=== PATIENT | male | born 1945 | race Asian ===

== ENCOUNTER 2016-05-19 21:30 | Outpatient (CLI) | payer MEDICARE | END 2016-05-19 21:31 | disposition home or self-care (01) | DX: G47.33 Obstructive sleep apnea (adult) (pediatric) (principal); G47.61 Periodic limb movement disorder ==

== ENCOUNTER 2016-06-13 09:04 | Outpatient (CLI) | payer MEDICARE | END 2016-06-13 09:05 | disposition home or self-care (01) | DX: G47.33 Obstructive sleep apnea (adult) (pediatric) (principal); G47.61 Periodic limb movement disorder | CPT/HCPCS: 99214; G0463 ==

== ENCOUNTER 2017-01-21 06:11 | Day surgery (SDC) | payer MEDICARE ==
[2017-01-21] MEDS ORDERED: LACTATED RINGERS 1,000 ML IV ONE (07:03)
[2017-01-21] MEDS ORDERED: fentaNYL 100 MCG/2 ML VIAL IVP ONE (07:30)
[2017-01-21] MEDS ORDERED: MIDAZOLAM 2 MG/2 ML VIAL IVP ONE (07:30)
[2017-01-21 08:45] VITALS: BP 121/64
[2017-01-21] MEDS ORDERED: DEXTROSE 5% 1,000 ML IV ONE (08:52)
== END 2017-01-21 06:12 | disposition home or self-care (01) ==
LOC: SDS 06:11
PROVIDERS: ATTEND Surgery
PROC: 0DBP8ZX Excision of Rectum, Via Natural or Artificial Opening Endoscopic, Diagnostic (ICD-10-PCS; principal; 2017-01-21 07:30)
DX: Z12.11 Encounter for screening for malignant neoplasm of colon (principal); D12.8 Benign neoplasm of rectum; K57.30 Diverticulosis of large intestine without perforation or abscess without bleeding; K64.8 Other hemorrhoids; I10 Essential (primary) hypertension; E11.9 Type 2 diabetes mellitus without complications; R06.81 Apnea, not elsewhere classified; Z79.82 Long term (current) use of aspirin; Z79.4 Long term (current) use of insulin
CPT/HCPCS: 45380; J7120

== ENCOUNTER 2017-07-18 12:32 | Outpatient (CLI) | payer MEDICARE ==
--- NOTE | 2017-07-19 15:31 | XRAY Report ---
RIGHT SHOULDER: 07/18/2017 COMPARISON: No comparison. INDICATION: Shoulder pain. TECHNIQUE: Three views. FINDINGS Normal alignment. No evidence of acute fracture. There are moderate degenerative changes of the acromioclavicular joint. IMPRESSION: MODERATE AC JOINT ARTHROSIS. TD: 07/19/2017 09:30 MTDD
== END 2017-07-18 12:33 | disposition home or self-care (01) ==
LOC: DI 12:32
PROVIDERS: ATTEND Family Medicine
DX: M19.011 Primary osteoarthritis, right shoulder (principal)

== ENCOUNTER 2018-01-24 14:31 | Emergency (ER) | payer MEDICARE ==
[2018-01-24 14:36] VITALS: BP 176/92
--- NOTE | 2018-01-24 14:59 | ED Physician Documentation ---
PD HPI UPPER EXT INJURY - Stated complaint Stated Complaint: R THUMB INJ - Chief complaint Chief Complaint: Laceration - History obtained from History obtained from: Patient - History of Present Illness Location: Right (He cut the tip off his right thumb at 830 this morning with a mandolin slicer at home. He is up-to-date on tetanus.) Review of Systems Constitutional: reports: Reviewed and negative Throat: reports: Reviewed and negative Cardiac: reports: Reviewed and negative PD PAST MEDICAL HISTORY - Past Medical History Past Medical History: Yes Cardiovascular: Hypertension Respiratory: Sleep apnea, CPAP use Endocrine/Autoimmune: Type 2 diabetes GI: Colon polyps : None HEENT: Chronic vision loss, Chronic hearing loss Psych: None Musculoskeletal: Osteoarthritis, Gout Derm: None - Past Surgical History Past Surgical History: No General: Colonoscopy HEENT: Other - Present Medications Home Medications: Ambulatory Orders Medication Instructions Recorded Confirmed Aspirin 81 mg PO 01/21/17 Atenolol 50 mg PO 01/21/17 Calcium Carbonate/Vitamin D3 1 each PO 01/21/17 [Calcium 500-Vit D3 600 Caplet] Cetirizine [ZyrTEC] 10 mg PO ONCE 01/21/17 01/21/17 Insulin Glargine [Lantus Solostar] 34 unit SQ 01/21/17 Naproxen 500 mg PO 01/21/17 Mes[place]-3S/Dha/Epa/Fish Oil [Fish 1 each PO 01/21/17 Oil 1,200 mg Softgel] Simvastatin [Zocor] 5 mg PO 01/21/17 metFORMIN [Glucophage] 1,000 mg PO BIDWM 01/21/17 01/21/17 Exenatide Microspheres [Bydureon] 1 amp IV OAW 01/24/18 01/24/18 - Allergies Allergies/Adverse Reactions: Allergies Allergy/AdvReac Type Severity Reaction Status Date / Time JEOVANY Inhibitors AdvReac Unknown Verified 01/24/18 14:36 - Social History Does the pt smoke?: No Smoking Status: Never smoker Does the pt drink ETOH?: No Does the pt have substance abuse?: No - Immunizations Immunizations are current?: Yes - POLST Patient has POLST: No PD ED PE NORMAL - Vitals Vital signs reviewed: Yes - General General: Alert and oriented X 3, No acute distress - Extremities Extremities: Other (On the tip of the right thumb there is a less than 1 cm fi ngertip amputation with active bleeding.) - Neuro Neuro: Alert and oriented X 3, Normal speech Results - Vitals Vitals: Vital Signs - 24 hr 01/24/18 14:33 Temperature 36 C L Heart Rate 82 Respiratory 16 Rate Blood Pressure 176/92 H O2 Saturation 96 Oxygen O2 Source Room air PD MEDICAL DECISION MAKING - ED course ED course: He was irrigated and dressed with Gelfoam and tube gauze is given advice on wound care. - Sepsis Event Vital Signs: Vital Signs - 24 hr 01/24/18 14:33 Temperature 36 C L Heart Rate 82 Respiratory 16 Rate Blood Pressure 176/92 H O2 Saturation 96 Oxygen O2 Source Room air Departure - Departure Disposition: Home, Self Care Clinical Impression: Fingertip amputation Qualifiers: Encounter type: initial encounter Qualified Code(s): S68.129A - Partial traumatic metacarpophalangeal amputation of unspecified finger, initial encounter Condition: Good Record reviewed to determine appropriate education?: Yes Instructions: ED Laceration Amputation Finger Tip Open Tx Comments: Keep this dressing on until Saturday. After that point all you should need is a bulky Band-Aid. Follow-up with your doctor next week for wound check. Your blood pressure was elevated today on check into the emergency department. This does not mean that you have hypertension, it is a common phenomenon to come to the emergency department and have elevated blood pressure. I recommend that you see your primary care physician within the week to have it rechecked when you are feeling better.
== END 2018-01-24 15:22 | disposition home or self-care (01) ==
LOC: ED 14:31
DX: S68.129A Partial traumatic metacarpophalangeal amputation of unspecified finger, initial encounter (principal); W27.4XXA Contact with kitchen utensil, initial encounter; Y92.009 Unspecified place in unspecified non-institutional (private) residence as the place of occurrence of the external cause; I10 Essential (primary) hypertension; E11.9 Type 2 diabetes mellitus without complications; Z79.84 Long term (current) use of oral hypoglycemic drugs; Z79.82 Long term (current) use of aspirin
CPT/HCPCS: 99282; 99283

== ENCOUNTER 2019-05-22 15:46 | Outpatient (CLI) | payer MEDICARE ==
--- NOTE | 2019-05-24 10:26 | XRAY Report ---
Reason: PERSISTENT COUGH Procedure Date: 05/22/2019 Accession Number: [id number] / [id number] Procedure: XR - Chest 2 View X-Ray CPT Code: 70931 Final Report FULL RESULT: EXAM: CHEST RADIOGRAPHY EXAM DATE: 05/22/2019 04:08 PM HISTORY: PERSISTENT COUGH COMPARISON: NONE TECHNIQUE: Two Views FINDINGS: Lungs/Pleura: No consolidation, edema or pleural effusion. Cardiomediastinal silhouette: Unremarkable accounting for technique. Other: None. IMPRESSION: Normal two view chest. RADIA
== END 2019-05-22 15:47 | disposition home or self-care (01) ==
LOC: DI 15:46
PROVIDERS: ATTEND Family Medicine
DX: R05 Cough (principal)
CPT/HCPCS: 71046

== ENCOUNTER 2023-05-08 12:36 | Outpatient (CLI) | payer MEDICARE ==
--- NOTE | 2023-05-08 15:02 | DEXA Report ---
PROCEDURE: Dexa Spine and/or Hip INDICATIONS: OSTEOPENIA TECHNIQUE: Dual energy x-ray absorptiometry (DXA) was performed on a Fiiiling System. Regions measur ed are the AP Spine, femoral neck, and if needed forearm. COMPARISON: None FINDINGS: Lumbar Spine: Bone Mineral Density 1.18 g/cm/cm,T score -0.3. Left Femoral Neck: Bone Mineral Density 0.81 g/cm/cm, T score -2. Left Hip: Bone Mineral Density 0.87 g/cm/cm,T score -1.6. (T score greater or equal to -1.0: NORMAL) (T score from -1.1 to -2.4: OSTEOPENIA) (T score less than or equal to -2.5 to: OSTEOPOROSIS) Impression: By WHO criteria, this patient has low bone density (osteopenia). Patients with diagnosis of osteoporosis or osteopenia should have regular bone mineral density assess ment. For those eligible for Medicare, routine testing is allowed once every 2 years. Testing frequ ency can be increased for patients who have rapidly progressing disease or for those who are receivin g medical therapy to restore bone mass. Reviewed by: Randal Michael MD on 05/08/2023 3:01 PM PST Approved by: Randal Michael MD on 05/08/2023 3:01 PM PST Station ID: [id number]
== END 2023-05-08 12:37 | disposition home or self-care (01) ==
LOC: DI 12:36
PROVIDERS: ATTEND Family Medicine
DX: M85.89 Other specified disorders of bone density and structure, multiple sites (principal)

== ENCOUNTER 2023-11-24 11:14 | Outpatient (CLI) | payer MEDICARE ==
--- NOTE | 2023-11-24 12:00 | Ultrasound Report ---
PROCEDURE: Ankle Brachial Index INDICATIONS: PERIPHERAL EDEMA TECHNIQUE: Ankle-brachial indices were obtained bilaterally and recorded. COMPARISONS: None. FINDINGS: Right ankle brachial index (FRANCISCO): 1.0. Left ankle brachial index (FRANCISCO): 0.9. Bilateral atherosclerotic plaques are seen in posterior tibial arteries and dorsalis pedis arteries w hich could falsely elevate the FRANCISCO. BODY FORMER velocity is 86 and 75 cm/s right and left side respectively with biphasic flow. Dorsalis pedis artery velocity is 17 and 28 cm/s in right and left side respectively with biphasic fl ow. Healing potential: Ankle pressures >55 mm Hg in non-diabetics and >80 mm Hg in diabetics are likely to achieve primary h ealing of ischemic foot ulcers. Toe pressures >30 mm Hg are likely to achieve primary healing of ischemic foot ulcers, toe or transme tatarsal amputations. IMPRESSION: 1. Bilateral calcified plaques in lower leg arteries which can falsely elevate tibia. 2. Normal bilateral ankle FRANCISCO. 3. Decreased velocity in dorsalis pedis arteries bilaterally and is suggestive of poor healing potent ial. Reviewed by: Adi Calloway MD on 11/24/2023 11:58 AM PDT Approved by: Adi Calloway MD on 11/24/2023 11:58 AM PDT Station ID: [id number]
== END 2023-11-24 11:15 | disposition home or self-care (01) ==
LOC: DI 11:14
PROVIDERS: ATTEND Family Medicine
DX: R60.0 Localized edema (principal); I70.8 Atherosclerosis of other arteries
CPT/HCPCS: 93922